=== PATIENT | male | born 1960 | race Caucasian/White ===

== ENCOUNTER 2018-10-11 08:39 | Emergency (ER) | payer OTHER ==
[~2018-10-11] VITALS: Ht 167.6 cm; Wt 104.8 kg
[2018-10-11 08:48] VITALS: Ht 167.6 cm; Wt 104.8 kg
[2018-10-11 11:01] VITALS: BP 125/70
== END 2018-10-11 11:01 | disposition home or self-care (01) ==
LOC: ED 08:39
DX: S16.1XXA Strain of muscle, fascia and tendon at neck level, initial encounter (principal); E11.9 Type 2 diabetes mellitus without complications; M25.511 Pain in right shoulder; M79.631 Pain in right forearm; M79.661 Pain in right lower leg; V48.5XXA Car driver injured in noncollision transport accident in traffic accident, initial encounter; Y93.I9 Activity, other involving external motion; Y92.488 Other paved roadways as the place of occurrence of the external cause; Y99.8 Other external cause status
CPT/HCPCS: Q0092